=== PATIENT | female | born 1995 | race Caucasian/White ===

== ENCOUNTER 2020-08-10 09:53 | Inpatient (IN) | payer OTHER ==
[~2020-08-10] VITALS: Ht 177.8 cm; Wt 77.3 kg
[2020-08-10] MEDS ORDERED: HYDROmorphone 1 MG/ML, 1ML INJ IV ONE ×2 (10:30→13:30)
[2020-08-10] MEDS ORDERED: SODIUM CHLORIDE 0.9% 1,000ML IVBOLUS ONE (10:30)
[2020-08-10] MEDS ORDERED: SODIUM CHLORIDE FLUSH 10ML SYR IVF ONE (10:30)
[2020-08-10 10:44] LABS: MICROSCOPIC NOT IND
[2020-08-10 10:48] LABS: BASOPHILS % (AUTO) 0 % (0-1); EOSINOPHILS % (AUTO) 1 % (1-7); LYMPHOCYTES % (AUTO) 23 % (22-44); MEAN CORPUSCULAR HGB CONC 34.2 g/dL (32.4-35.8); MEAN PLATELET VOLUME 8.4 fL (7.4-10.4); MONOCYTES % (AUTO) 5 % (2-9); NEUTROPHILS % (AUTO) 72 % (42-75); PLATELET COUNT 250 x10^3/uL (130-400); RED BLOOD COUNT 4.06 x10^6/uL (3.82-5.3); RED CELL DISTRIBUTION WIDTH 13.6 % (9.6-15.2)
[2020-08-10] MEDS ORDERED: HYDROmorphone 1 MG/ML, 1ML INJ ONE ×2 (10:48→13:26)
[2020-08-10 10:57] LABS: ALBUMIN 4.1 g/dL (3.4-5.0); ANION GAP 6 mmol/L (5-15); CALCIUM 9.2 mg/dL (8.5-10.1); CHLORIDE 110 mmol/L (98-107)
[2020-08-10 11:00] LABS: ALANINE AMINOTRANSFERASE 129 U/L (12-78); ALKALINE PHOSPHATASE 122 U/L (45-117); BILIRUBIN,TOTAL 0.7 mg/dL (0.2-1.0); CREATININE 0.71 mg/dL (0.55-1.02)
--- NOTE | 2020-08-10 11:00 | NUR ---
PT HAS CO RUQ ABDOMINAL PAIN W N/V FOR 3 DAYS. DENIES PROBLEMS URINATING.
[2020-08-10] MEDS ORDERED: ONDANSETRON 2MG/ML, 2ML IVPush ONE (11:30)
[2020-08-10] MEDS ORDERED: ONDANSETRON 2MG/ML, 2ML ONE (11:30)
--- NOTE | 2020-08-10 11:30 | NUR ---
MEDICATED FOR PAIN/NAUSEA
--- NOTE | 2020-08-10 11:37 | NUR ---
PT TO CT
[2020-08-10] MEDS ORDERED: OMNIPAQUE 350 MG/ML, 100ML BOTTLE ONE (11:50)
--- NOTE | 2020-08-10 13:59 | NUR ---
PT MEDICATED FOR PAIN. GI CONSULT.
[2020-08-10 15:03] VITALS: BP 109/66
[2020-08-10] MEDS ORDERED: ONDANSETRON ODT 4 MG PO PRN (16:00)
[2020-08-10] MEDS ORDERED: hydrALAzine 20 MG/ML, 1ML IVPush PRN (16:00)
[2020-08-10] MEDS ORDERED: DOCUSATE 100 MG CAPSULE PO PRN (16:00)
[2020-08-10] MEDS ORDERED: PROMETHAZINE 25 MG/ML, 1ML IM PRN (16:00)
[2020-08-10] MEDS ORDERED: QUET50TA5 PO (16:05)
[2020-08-10] MEDS ORDERED: LAMO200T3 PO (16:05)
[2020-08-10] MEDS: SODIUM CHLORIDE 0.9% 1,000 ML IV SCH (16:58)
[2020-08-10] MEDS: morphine SULFATE 10 MG/ML, 1ML IVPush PRN (19:56)
[2020-08-10] MEDS: QUETIAPINE 25MG TABLET PO SCH (21:47)
[2020-08-11 00:51] VITALS: BP 97/61
[2020-08-11] MEDS: SODIUM CHLORIDE 0.9% 1,000 ML IV SCH ×2 (03:03→13:00)
[2020-08-11 05:01] LABS: ALANINE AMINOTRANSFERASE 265 U/L (12-78); ALBUMIN 3.2 g/dL (3.4-5.0); ANION GAP 4 mmol/L (5-15); CHLORIDE 115 mmol/L (98-107); CREATININE 0.62 mg/dL (0.55-1.02)
[2020-08-11 05:07] LABS: BASOPHILS % (AUTO) 0 % (0-1); EOSINOPHILS % (AUTO) 1 % (1-7); LYMPHOCYTES % (AUTO) 30 % (22-44); MEAN CORPUSCULAR HEMOGLOBIN 32.4 pg (27.0-34.8); MEAN PLATELET VOLUME 8.4 fL (7.4-10.4); MONOCYTES % (AUTO) 5 % (2-9); NEUTROPHILS % (AUTO) 65 % (42-75); PLATELET COUNT 227 x10^3/uL (130-400); RED BLOOD COUNT 3.66 x10^6/uL (3.82-5.3); RED CELL DISTRIBUTION WIDTH 13.4 % (9.6-15.2)
[2020-08-11 05:09] LABS: ALKALINE PHOSPHATASE 168 U/L (45-117); CHOL/HDL RATIO 2.6; CHOLESTEROL, TOTAL 111 mg/dL (140-239); HDL CHOL % 38 % (28-40); HDL CHOLESTEROL (DIRECT) 42 mg/dL (40-60); LDL CHOLESTEROL,CALCULATED 53 mg/dL (54-169); LDL/HDL RATIO 1.3 (0.5-3.0); TOTAL PROTEIN 5.5 g/dL (6.4-8.2); TRIGLYCERIDES 80 mg/dL (50-200); VLDL CHOLESTEROL 16 mg/dL (0-25)
[2020-08-11 06:36] VITALS: BP 108/69
[2020-08-11] MEDS ORDERED: PROPOFOL 10 MG/ML, 20ML ONE ×2 (07:06)
[2020-08-11] MEDS ORDERED: MIDAZOLAM 1 MG/ML, 2ML ONE (07:06)
[2020-08-11] MEDS ORDERED: LIDOCAINE-MPF 2% ,5ML ONE (07:06)
[2020-08-11] MEDS ORDERED: ONDANSETRON 2MG/ML, 2ML IVPush PRN (07:30)
[2020-08-11] MEDS ORDERED: CHLORHEXIDINE 15 ML UDC ONE (07:35)
[2020-08-11] MEDS ORDERED: FENTANYL PF 100 MCG/2ML ONE (09:14)
[2020-08-11] MEDS ORDERED: ONDANSETRON 2MG/ML, 2ML ONE (09:14)
[2020-08-11] MEDS: FENTANYL PF 100 MCG/2ML IV PRN ×3 (09:19→09:37)
[2020-08-11] MEDS: LAMOTRIGINE 200 MG TABLET PO SCH (10:23)
[2020-08-11] MEDS: ONDANSETRON 2MG/ML, 2ML IVPush PRN ×2 (10:23→20:09)
[2020-08-11] MEDS: morphine SULFATE 10 MG/ML, 1ML IVPush PRN ×3 (10:23→17:28)
[2020-08-11 13:00] VITALS: BP 105/73
[2020-08-11] MEDS ORDERED: LORazepam 2 MG/ML, 1ML IVPush PRN (14:30)
[2020-08-11] MEDS: QUETIAPINE 25MG TABLET PO SCH (20:04)
[2020-08-11 20:35] VITALS: BP 100/69
[2020-08-12 00:38] VITALS: BP 84/66
[2020-08-12 04:33] LABS: BASOPHILS % (AUTO) 0 % (0-1); EOSINOPHILS % (AUTO) 2 % (1-7); LYMPHOCYTES % (AUTO) 27 % (22-44); MEAN CORPUSCULAR HEMOGLOBIN 32.6 pg (27.0-34.8); MEAN CORPUSCULAR HGB CONC 34.3 g/dL (32.4-35.8); MEAN PLATELET VOLUME 8.4 fL (7.4-10.4); MONOCYTES % (AUTO) 6 % (2-9); NEUTROPHILS % (AUTO) 65 % (42-75); PLATELET COUNT 225 x10^3/uL (130-400); RED BLOOD COUNT 3.65 x10^6/uL (3.82-5.3); RED CELL DISTRIBUTION WIDTH 13.3 % (9.6-15.2)
[2020-08-12 04:44] LABS: ALANINE AMINOTRANSFERASE 179 U/L (12-78); ALBUMIN 3.4 g/dL (3.4-5.0); ANION GAP 3 mmol/L (5-15); CALCIUM 8.3 mg/dL (8.5-10.1); CHLORIDE 113 mmol/L (98-107)
[2020-08-12 04:46] LABS: ALKALINE PHOSPHATASE 141 U/L (45-117); BILIRUBIN,TOTAL 0.7 mg/dL (0.2-1.0)
[2020-08-12 07:12] VITALS: BP 95/57
[2020-08-12 07:55] VITALS: BP 104/68
[2020-08-12] MEDS: LAMOTRIGINE 200 MG TABLET PO SCH (07:57)
[2020-08-12] MEDS: morphine SULFATE 10 MG/ML, 1ML IVPush PRN ×2 (09:15→12:37)
[2020-08-12 13:16] VITALS: BP 110/76
== END 2020-08-12 14:52 | disposition home or self-care (01) | DRG 694 ==
LOC: ED 12:37 → 3N 14:05 → DCLOUNGE 08-12 14:48
PROVIDERS: ADMIT Internal Medicine; ATTEND Internal Medicine
PROC: 0DB68ZX Excision of Stomach, Via Natural or Artificial Opening Endoscopic, Diagnostic (ICD-10-PCS; 2020-08-11)
PROC: 0DB58ZX Excision of Esophagus, Via Natural or Artificial Opening Endoscopic, Diagnostic (ICD-10-PCS; 2020-08-11)
PROC: 0DB98ZX Excision of Duodenum, Via Natural or Artificial Opening Endoscopic, Diagnostic (ICD-10-PCS; principal; 2020-08-11 07:45)
DX: N13.30 Unspecified hydronephrosis (principal); K86.1 Other chronic pancreatitis; F31.9 Bipolar disorder, unspecified; F41.0 Panic disorder [episodic paroxysmal anxiety]; N83.202 Unspecified ovarian cyst, left side; G89.29 Other chronic pain; R42 Dizziness and giddiness; Z20.822 Contact with and (suspected) exposure to COVID-19; R74.01 Elevation of levels of liver transaminase levels; Z90.49 Acquired absence of other specified parts of digestive tract; Z90.710 Acquired absence of both cervix and uterus; Z88.5 Allergy status to narcotic agent
CPT/HCPCS: 36415; 96361; 96374; 99285; J3490; 74177; 74181; 80053; 80061; 81003; 82390; 82787; 83036; 83516; 83605; 83690; 83735; 84100; 84311; 84443; 85025; 86308; 86704; 86706; 86709; 86803; 87340; 87635; 88305; G0378; J1170; J2250; J2405; J2704; J3010; Q0162; Q9967; J2060; J2270; J7030